=== PATIENT | female | born 1990 | race Caucasian/White ===

== ENCOUNTER 2018-10-14 14:05 | Inpatient (IN) | payer OTHER ==
[2018-10-14] MEDS ORDERED: BRETHINE SUB-Q PRN (14:47)
--- NOTE | 2018-10-14 14:53 | History and Physical Report ---
History of Present Illness Date of examination: 10/14/18 Date of admission: 10/14/18 Chief complaint: Contractions History of present illness: 27 year old presents to L&D in active labor. Patient states she has had contractions all day today. She denies vaginal bleeding or leaking of fluid. Patient states she received care at [facility]; no records are available. No labs available; labs have been drawn upon admission today. LMP unknown. EDC 10/22/18. 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 denies: smoking, alcohol abuse, prescription drug abuse, IV drug use - Obstetrical History Expected Date of Delivery: 10/22/18 Actual Gestation: 38 Week(s) 6 Day(s) : 1 Para: 0 Hx # Term Pregnancies: 0 Number of Pregnancies: 0 Spontaneous Abortions: 0 Induced : 0 Number of Living Children: 0 Medications and Allergies Active Meds: Active Medications Ephedrine Sulfate (Ephedrine Sulfate) 10 mg IV Q2M PRN PRN Reason: Hypotension Oxytocin/Sodium Chloride (Pitocin/Ns 20 Unit/1000ml Drip) 20 units in 1,000 mls @ 125 mls/hr IV DIRECT ZOHRA Lactated Ringer's (Lactated Ringers) 1,000 mls @ 125 mls/hr IV DIRECT ZOHRA Ampicillin Sodium (Ampicillin/Ns 2 Gm/100 Ml) 2 gm in 100 mls @ 100 mls/hr IV ONCE ONE; Protocol Stop: 10/14/18 15:59 Lidocaine (Xylocaine 2%) 20 ml INFILTRATI ONCE ONE Stop: 10/14/18 14:48 Terbutaline Sulfate (Brethine) 0.25 mg SUB-Q ONCE PRN PRN Reason: Hyperstimulation/Hypertonicity Review of Systems All systems: negative (contractions) - Physical Exam Abdomen: Positive: normal appearance, soft. Negative: distention, tenderness, guarding, rigidity Genitourinary (Female): Positive: normal external genitalia, normal perenium. Negative: perineal/vulvar lesions Vagina: Positive: normal moisture Uterus: Positive: enlarged. Negative: tender Anus/Rectum: Positive: normal perianal skin Extremities: Positive: normal. Negative: tenderness, edema - Obstetrical FHR: category 1 Uterine Contraction Monitor Mode: External Cervical Dilatation: 8 Cervical Effacement Percentage: 90 station: 0 Uterine Contraction Pattern: Regular Uterine Contraction Intensity: Moderate Results All other labs normal. Assessment and Plan A: at 38 weeks, 6 days gestation. Active labor. GBS unknown. No records available. P: Admit. Continuous EFM. GBS prophylaxis. Request records. Draw labs. Anticipate vaginal delivery.
[2018-10-14] MEDS ORDERED: PITOCin/NS 20 UNIT/1000ML DRIP 20 UNITS/1,000 ML BAG IV SCH (15:00)
[2018-10-14] MEDS ORDERED: LACTATED RINGERS 1,000 ML IV SCH (15:00)
[2018-10-14] MEDS ORDERED: XYLOCAINE 2% INFILTRATI ONE (15:00)
[2018-10-14] MEDS ORDERED: AMPICILLIN/NS 2 GM/100 ML 2 GM/100 ML BAG IV ONE (15:00)
[2018-10-14] MEDS ORDERED: NARCAN 2 MG/2 ML IV PRN (15:16)
--- NOTE | 2018-10-14 15:16 | Anesthesia Consultation ---
Anesthesia Consult and Med Hx Date of service: 10/14/18 - Airway Anesthetic Teeth Evaluation: Good ROM Head & Neck: Adequate Mental/Hyoid Distance: Adequate Mallampati Class: Class II Intubation Access Assessment: Good - Pulmonary Exam CTA: Yes - Cardiac Exam Cardiac Exam: RRR - Pre-Operative Health Status ASA Pre-Surgery Classification: ASA2, Emergency Proposed Anesthetic Plan: Epidural - Pulmonary Hx Asthma: No - Cardiovascular System Hx Hypertension: No - Central Nervous System Hx Seizures: No Hx Psychiatric Problems: No - Endocrine Hx Renal Disease: No Hx Hypothyroidism: No Hx Hyperthyroidism: No - Hematic Hx Anemia: No Hx Sickle Cell Disease: No - Other Systems Hx Alcohol Use: No
[2018-10-14 15:41] LABS: Hematocrit 39.9 % (30.3-42.9); Hemoglobin 13.3 gm/dl (10.1-14.3); Mean Corpuscular HGB Conc 33 % (30-34); Mean Corpuscular Volume 83 fl (79-97); Platelet Count 219 K/mm3 (140-440); Red Blood Count 4.79 M/mm3 (3.65-5.03); Red Cell Distribution Width 15.1 % (13.2-15.2)
[2018-10-14] MEDS ORDERED: fentaNYL-BUPIV 2 MCG/ML-0.125% 200 MCG/100 ML BAG EPIDURAL SCH (16:00)
[2018-10-14 16:20] LABS: Hepatitis C Virus Antibody Non-Reactive (NonReactive)
[2018-10-14] MEDS ORDERED: AMPICILLIN/NS 1 GM/50 ML 1 GM/50 ML BAG IV SCH (19:00)
[2018-10-15 06:08] LABS: Hematocrit 34.5 % (30.3-42.9); Hemoglobin 11.7 gm/dl (10.1-14.3)
--- NOTE | 2018-10-15 07:19 | Procedure Note ---
OB Delivery Note - Delivery Date of Delivery: 10/14/18 Surgeon: CLEMENTINE AVENDAÑO Estimated blood loss: 200cc - Vaginal Delivery presentation: vertex Delivery position: OA Intrapartum events: none Delivery induction: none Delivery monitor: external FHT, external uterine Route of delivery: Delivery placenta: spontaneous Delivery cord: 3 umbilical vessels Episiotomy: none Delivery laceration: none Anesthesia: none Delivery comments: Spontaneous vaginal delivery at 16:52 of liveborn female weighing 2.495 kg over intact perineum with apgars of 8/9. Baby placed immediately skin to skin with mom after delivery. Spontaneous cry and respirations. Baby bulb suctioned and dried. 3 vessel cord double clamped and cut after cessation of pulsation. Sp ontaneous delivery of intact placenta and membranes. EBL 200 cc. Pitocin administered after delivery of placenta. Fundus firm and midline. No lacerations noted. Sponge count correct. Vaginal sweep negative. Mother and baby stable.
[2018-10-15] MEDS ORDERED: DULCOLAX PR PRN (11:14)
[2018-10-15] MEDS ORDERED: PHENERGAN PO PRN (11:14)
[2018-10-15] MEDS ORDERED: TUCKS PAD TP PRN (11:14)
[2018-10-15] MEDS ORDERED: NORCO 5/325 PO PRN (11:14)
[2018-10-15] MEDS ORDERED: PHENERGAN PR PRN (11:14)
[2018-10-15] MEDS ORDERED: BENADRYL PO PRN (11:14)
[2018-10-15] MEDS ORDERED: LANSINOH TP PRN (11:14)
[2018-10-15] MEDS ORDERED: ZOFRAN IV PRN (11:14)
[2018-10-15] MEDS ORDERED: TYLENOL PO PRN (11:14)
[2018-10-15] MEDS ORDERED: SODIUM CHLORIDE FLUSH SYRINGE 10 ML IV NR (12:00)
[2018-10-15] MEDS: IBUPROFEN PO SCH ×2 (12:44→23:56)
--- NOTE | 2018-10-15 16:39 | Progress Note ---
Assessment and Plan - Patient Problems (1) Status post normal vaginal delivery Current Visit: Yes Status: Acute Plan to address problem: PPD 1 - stable Continue routine orders Anticipate discharge in 24 hours pending CBC result (2) Leukocytosis Current Visit: Yes Status: Acute Plan to address problem: WBC on admission 17.2 Asymptomatic STAT repeat CBC ordered Subjective - Subjective Date of service: 10/15/18 Principal diagnosis: PPD #1; s/p Interval history: see H&P and OB Delivery Procedure Note Patient reports: appetite normal, voiding normally, pain well controlled, ambulating normally, other (denies flu-like symptoms or coughing), no dizzy ambulation [place]: doing well, other (breast and bottle feeding) Objective - Vital Signs Latest vital signs: Vital Signs Temp Pulse Resp BP BP Pulse Ox 10/15/18 13:12 97.9 F 84 18 102/64 98 10/15/18 08:09 97.9 F 81 18 124/76 97 10/15/18 04:40 98.2 F 80 18 128/73 97 10/15/18 01:11 98.2 F 65 18 105/67 99 10/14/18 21:23 99.2 F 81 18 106/66 98 10/14/18 18:21 72 99/73 10/14/18 18:20 90 99/74 10/14/18 18:06 71 99/60 10/14/18 18:03 68 101/60 10/14/18 17:53 70 99/54 10/14/18 17:12 97.4 F L 71 16 108/59 108/59 10/14/18 16:42 68 111/57 Intake and Output 10/15/18 10/15/18 10/15/18 07:59 15:59 23:59 Intake Total 120 Balance 120 Intake: Oral 120 Other: Total, Intake Amount 120 - Exam Cardiovascular: Present: Regular rate Lungs: Present: Clear to auscultation Abdomen: Present: normal appearance, soft Vulva: both: normal Uterus: Present: normal, firm, fundal height at umbilicus Extremities: Present: normal Comments: small lochia
[2018-10-15 18:15] LABS: Hematocrit 33.1 % (30.3-42.9); Hemoglobin 11.1 gm/dl (10.1-14.3); Mean Corpuscular HGB Conc 34 % (30-34); Mean Corpuscular Volume 84 fl (79-97); Platelet Count 217 K/mm3 (140-440); Red Blood Count 3.96 M/mm3 (3.65-5.03); Red Cell Distribution Width 15.1 % (13.2-15.2)
--- NOTE | 2018-10-15 18:39 | Discharge Summary ---
Providers - Providers Date of Admission: 10/14/18 14:55 Date of discharge: 10/15/18 Attending physician: DENISSE CHERRY MD Primary care physician: CARE PROGRAM DIRECTOR Hospitalization Reason for admission: active labor, IUP at term Delivery: Episiotomy: none Laceration: none complications: none Discharge diagnosis: IUP at term delivered [place] baby: female Hospital course: Uncomplicated Condition at discharge: Stable Disposition: DC-01 TO HOME OR SELFCARE - Discharge Diagnoses (1) Status post normal vaginal delivery Status: Acute (2) Leukocytosis Status: Acute Comment: Asymptomatic WBC decreasing (initially 17.2; repeat 13.3) Plan - Provider Discharge Summary Activity: routine, no sex for 6 weeks, no heavy lifting 4 weeks, no strenuous exercise Diet: routine Instructions: routine Additional instructions: [] Smoking cessation referral if applicable(refer to patient education folder f or contact #) [] Refer to [facility]'s [facility] Booklet Call your doctor immediately for: * Fever > 100.5 * Heavy vaginal bleeding ( >1 pad per hour) * Severe persistent headache * Shortness of breath * Reddened, hot, painful area to leg or breast * Drainage or odor from incision. * Keep incision clean and dry at all times and follow doctor's instructions regarding bathing/showering - Follow up plan Follow up: PRIMARY CARE, [Primary Care Provider] - 6 Weeks (Follow up at [facility] as needed or in 6 weeks for exam)
[2018-10-15] MEDS ORDERED: MILK OF MAGNESIA PO PRN (22:00)
[2018-10-15] MEDS: FEOSOL PO SCH (22:11)
[2018-10-16] MEDS: IBUPROFEN PO SCH ×2 (05:40→07:45)
[2018-10-16] MEDS ORDERED: PRENATAL VITAMIN PO SCH (10:00)
[2018-10-16 10:24] VITALS: BP 90/44
[2018-10-16] MEDS: FEOSOL PO SCH (10:42)
== END 2018-10-16 17:25 | disposition home or self-care (01) | DRG 807 ==
LOC: TRG 14:05 → LD 14:55 → OB 20:24
PROVIDERS: ADMIT Obstetrics & Gynecology; ATTEND Obstetrics & Gynecology
PROC: 10E0XZZ Delivery of Products of Conception, External Approach (ICD-10-PCS; principal; 2018-10-14)
DX: O75.89 Other specified complications of labor and delivery (principal); Z37.0 Single live birth; D72.829 Elevated white blood cell count, unspecified; Z3A.38 38 weeks gestation of pregnancy; Z79.899 Other long term (current) drug therapy
CPT/HCPCS: 36415; 83036; 85014; 85018; 85027; 86592; 86706; 86762; 86803; 86850; 86900; 86901; 87806; G0378; J0290; J2590; J7120